=== PATIENT | female | born 1930 | race Caucasian/White ===

== ENCOUNTER 2017-08-22 10:55 | Emergency (ER) | payer MEDICARE, OTHER ==
[~2017-08-22] VITALS: Ht 157.5 cm; Wt 65.8 kg
[~2017-08-22 10:55] MED LIST: ACET325 PO; ALBU90OI INH; AZIT250 PO; BISA10S PR; CALCITRATE200 MG PO; CHOL10002 PO; DOCU100 PO; DULOXETINE HCL20 MG PO; FISH1000 PO; HYDACE5325 PO; HYDR1TAB94 PO; IBUP400 PO; IRON240 MG PO; LACT10SY PO; LAVAP17G PO; MULTI VITAMIN1 EACH PO; Norco 5-325 Ta1 EACH PO; ONDA4 PO; OXYC10ER PO; OXYC15ER PO; OXYC5 PO; QUET25 PO; SENN187 PO; Vitamin C500 M3 PO
[2017-08-22] MEDS ORDERED: Multiple Vitam1 EAC1 (11:09)
[2017-08-22] MEDS ORDERED: Colace100 MG PO (11:09)
[2017-08-22] MEDS ORDERED: CALCITRATE200 MG PO (11:09)
[2017-08-22] MEDS ORDERED: ACET325 (11:10)
[2017-08-22] MEDS ORDERED: QUET25 PO (11:10)
== END 2017-08-22 15:02 | disposition home or self-care (01) ==
LOC: ER 10:55
DX: S51.011A Laceration without foreign body of right elbow, initial encounter (principal); S01.111A Laceration without foreign body of right eyelid and periocular area, initial encounter; S50.01XA Contusion of right elbow, initial encounter; S80.01XA Contusion of right knee, initial encounter; M25.511 Pain in right shoulder; Z79.899 Other long term (current) drug therapy; Z87.891 Personal history of nicotine dependence; W19.XXXA Unspecified fall, initial encounter
CPT/HCPCS: 12013; 70450; 72125; 73030; 73080; 99284

== ENCOUNTER 2019-03-22 12:14 | Inpatient (IN) | payer MEDICARE, OTHER ==
[~2019-03-22] VITALS: Ht 157.5 cm; Wt 56.7 kg
[~2019-03-22 12:14] MED LIST changes: +CENTRUM SILVER1 EAC2 PO; +Colace100 MG PO; +Multiple Vitam1 EAC1 PO
[2019-03-22] MEDS ORDERED: QUETIAPINE FUM100 MG PO (13:40)
[2019-03-22] MEDS ORDERED: ALPR.5 PO (14:56)
[2019-03-22 16:09] LABS: BASOPHILS ABSOLUTE AUTO 0.04 K/mm3 (0.00-0.23); BASOPHILS PERCENT AUTO 0 % (0-2); EOSINOPHILS PERCENT AUTO 4 % (0-6); Hematocrit 36.8 % (33.0-51.0); Hemoglobin 11.7 g/dL (11.5-16.0); IMMATURE GRAN ABSOLUTE AUTO 0.03 K/mm3 (0.00-0.10); IMMATURE GRAN PERCENT AUTO 0 % (0-1); LYMPHOCYTES ABSOLUTE AUTO 1.03 K/mm3 (0.84-5.20); LYMPHOCYTES PERCENT AUTO 11 % (21-46); MONOCYTES ABSOLUTE AUTO 0.68 K/mm3 (0.16-1.47); MONOCYTES PERCENT AUTO 8 % (4-13); Mean Corpuscular HGB 30.2 pg (26.0-34.0); Mean Corpuscular HGB Conc 31.8 g/dL (31.5-36.5); Mean Corpuscular Volume 95 fL (80-100); Mean Platelet Volume 10.2 fL (9.1-12.4); NEUTROPHILS ABSOLUTE AUTO 6.86 K/mm3 (1.96-9.15); NEUTROPHILS PERCENT AUTO 76 % (41-73); Platelet Count 235 K/mm3 (150-400); RDW Coefficient Variation 14.1 % (11.7-14.2); Red Blood Cell Count 3.87 M/mm3 (3.80-5.20); White Blood Cell Count 9.04 K/mm3 (4.00-11.30)
[2019-03-22 16:35] LABS: Albumin, Blood 3.9 g/dL (3.4-5.0); Albumin/Globulin Ratio 1.1 (0.8-1.8); Bilirubin, Total 1.2 mg/dL (0.1-1.0); Bun/Creatinine Ratio 26.2 (12.0-20.0); Calcium, Blood 9.6 mg/dL (8.5-10.1); Creatinine, Blood 0.99 mg/dL (0.40-1.00); Globulin, Blood 3.4 g/dL (2.2-4.0); Potassium, Blood 4.2 mmol/L (3.5-5.5); Total Protein, Blood 7.3 g/dL (6.4-8.2)
[2019-03-22] MEDS ORDERED: IBUP400 PO (16:54)
[2019-03-22] MEDS ORDERED: Anti-Diarrheal2 MG PO (16:55)
[2019-03-22] MEDS ORDERED: NYSTRIT TOP (16:56)
[2019-03-22] MEDS ORDERED: ABAT250V (16:56)
--- NOTE | 2019-03-22 18:10 | NUR ---
ADMISSION: REPORT RECIEVED FROM ED RN. PT TO UNIT AT ABOUT 1640. UPON ASSESSMENT PT IS DROWSY, AWAKENS TO VOICE AND PAIN. PT IS ORIENTED. HX OF DEMENTIA, BED ALARM ON FOR SAFETY. VSS. ATTENDS SOILED, PT TURNED AND CHANGED. PT WINCES WHEN TURNED, BUT DENIES NEED FOR PAIN MED. WILL POSTION FOR COMFORT AND CTM.
--- NOTE | 2019-03-22 18:37 | NUR ---
SUMMARY: NO CHANGE SINCE ADMISSION. PT CONTINUES TO BE DROWSY, AWAKENS EASILY
[2019-03-23 04:08] LABS: BASOPHILS ABSOLUTE AUTO 0.04 K/mm3 (0.00-0.23); BASOPHILS PERCENT AUTO 1 % (0-2); EOSINOPHILS ABSOLUTE AUTO 0.44 K/mm3 (0.00-0.68); EOSINOPHILS PERCENT AUTO 6 % (0-6); Hematocrit 32.9 % (33.0-51.0); Hemoglobin 10.4 g/dL (11.5-16.0); IMMATURE GRAN ABSOLUTE AUTO 0.02 K/mm3 (0.00-0.10); IMMATURE GRAN PERCENT AUTO 0 % (0-1); LYMPHOCYTES ABSOLUTE AUTO 0.79 K/mm3 (0.84-5.20); LYMPHOCYTES PERCENT AUTO 11 % (21-46); MONOCYTES ABSOLUTE AUTO 0.63 K/mm3 (0.16-1.47); MONOCYTES PERCENT AUTO 9 % (4-13); Mean Corpuscular HGB 30.1 pg (26.0-34.0); Mean Corpuscular HGB Conc 31.6 g/dL (31.5-36.5); Mean Corpuscular Volume 95 fL (80-100); Mean Platelet Volume 10.2 fL (9.1-12.4); NEUTROPHILS ABSOLUTE AUTO 5.33 K/mm3 (1.96-9.15); NEUTROPHILS PERCENT AUTO 73 % (41-73); Platelet Count 199 K/mm3 (150-400); RDW Coefficient Variation 14.2 % (11.7-14.2); RDW Standard Deviation 49.3 fL (35.1-46.3); Red Blood Cell Count 3.46 M/mm3 (3.80-5.20); White Blood Cell Count 7.25 K/mm3 (4.00-11.30)
[2019-03-23 04:23] LABS: International Normalized Ratio 0.98; Prothrombin Time Results 10.4 Sec (9.7-11.5)
[2019-03-23 04:32] LABS: Alanine Aminotransfer (ALT/SGP 18 U/L (12-78); Albumin, Blood 3.1 g/dL (3.4-5.0); Alk Phos 57 U/L (50-136); Anion Gap 6 mmol/L (6-16); Aspartate Aminotrans (AST/SGOT 17 U/L (12-37); Bilirubin, Total 1.1 mg/dL (0.1-1.0); Blood Urea Nitrogen 24 mg/dL (8-24); Bun/Creatinine Ratio 26.4 (12.0-20.0); CO2, Blood 26 mmol/L (21-32); Calcium, Blood 8.6 mg/dL (8.5-10.1); Chloride, Blood 110 mmol/L (98-108); Creatinine, Blood 0.91 mg/dL (0.40-1.00); Glomerular Filtration Rate >60 (60-); Glucose, Blood 86 mg/dL (70-99); Sodium, Blood 142 mmol/L (136-145); Total Protein, Blood 6.1 g/dL (6.4-8.2)
--- NOTE | 2019-03-23 07:23 | NUR ---
SHIFT SUMMARY LYING IN SEMI FOWLERS. REPOSITIONS SELF IN BED. ATTENDS IN PLACE FOR NCONTINENCE. REFUSES PAIN MEDS WHEN OFFERED SEVERAL TIMES. DENIES FURTHER NEEDS AT THIS TIME. SAFETY MEASURES IN PLACE. WILL GIVE HAND OFF TO ONCOMING SHIFT USING SBAR.
--- NOTE | 2019-03-23 11:28 | NUR ---
PATIENT PULLED IV. NEW 18 GA PLACED BY Krupa MOORE. FENTANYL 12.5 MG ADMIN OR C/O L HIP PAIN. CONT TO MONITOR.
--- NOTE | 2019-03-23 11:31 | NUR ---
PATIENT RESTING QUIETLY WITH EYES CLOSED. RESP E/U. CONT TO MONITOR.
--- NOTE | 2019-03-23 18:39 | NUR ---
SHIFT SUMMARY PATIENT HAS RESTED INTERMITANTLY T/O SHIFT. PULLED 2ND IV OUT AT APPROX 1800. REFUSED TO LET CN PLACE NEW IV; ATTEMPTED TO SCRATCH HER. WILL PASS ON TO LU CN. INCONTINENT OF URINE X 2, ATTENDS CHANGED. CIRC CHECKS TO MIGUELANGEL COOLEY. INFORMED BY DR MORALES THAT PATIENT WILL HAVE SURGERY TOMORROW.
--- NOTE | 2019-03-24 05:21 | NUR ---
SHIFT SUMMARY LYING IN SEMI FOWLERS. REPOSITIONS SELF IN BED. ATTENDS IN PLACE FOR INCONTINENCE. REFUSES PAIN MEDS ESCH TIME OFFERED. DENIES FURTHER NEEDS AT THIS TIME. SAFETY MEASURES IN PLACE. WILL GIVE HAND OFF TO ONCOMING SHIFT USING SBAR.
[2019-03-24 12:51] LABS: BASOPHILS ABSOLUTE AUTO 0.05 K/mm3 (0.00-0.23); BASOPHILS PERCENT AUTO 1 % (0-2); EOSINOPHILS ABSOLUTE AUTO 0.16 K/mm3 (0.00-0.68); EOSINOPHILS PERCENT AUTO 2 % (0-6); Hematocrit 32.3 % (33.0-51.0); Hemoglobin 10.1 g/dL (11.5-16.0); IMMATURE GRAN ABSOLUTE AUTO 0.03 K/mm3 (0.00-0.10); IMMATURE GRAN PERCENT AUTO 0 % (0-1); LYMPHOCYTES ABSOLUTE AUTO 0.88 K/mm3 (0.84-5.20); LYMPHOCYTES PERCENT AUTO 10 % (21-46); MONOCYTES ABSOLUTE AUTO 0.67 K/mm3 (0.16-1.47); MONOCYTES PERCENT AUTO 8 % (4-13); Mean Corpuscular HGB 30.1 pg (26.0-34.0); Mean Corpuscular HGB Conc 31.3 g/dL (31.5-36.5); Mean Corpuscular Volume 96 fL (80-100); Mean Platelet Volume 10.4 fL (9.1-12.4); NEUTROPHILS ABSOLUTE AUTO 6.71 K/mm3 (1.96-9.15); NEUTROPHILS PERCENT AUTO 79 % (41-73); Platelet Count 204 K/mm3 (150-400); RDW Coefficient Variation 13.9 % (11.7-14.2); RDW Standard Deviation 49.1 fL (35.1-46.3); Red Blood Cell Count 3.35 M/mm3 (3.80-5.20)
[2019-03-24 13:04] LABS: Anion Gap 10 mmol/L (6-16); Blood Urea Nitrogen 25 mg/dL (8-24); Bun/Creatinine Ratio 32.2 (12.0-20.0); CO2, Blood 21 mmol/L (21-32); Calcium, Blood 8.8 mg/dL (8.5-10.1); Chloride, Blood 111 mmol/L (98-108); Creatinine, Blood 0.78 mg/dL (0.40-1.00); Glomerular Filtration Rate >60 (60-); Glucose, Blood 72 mg/dL (70-99); Phosphorus, Blood 2.9 mg/dL (2.5-4.9); Potassium, Blood 4.3 mmol/L (3.5-5.5); Sodium, Blood 142 mmol/L (136-145)
--- NOTE | 2019-03-24 14:15 | NUR ---
PATIENT TO SURGERY AT THIS TIME.
--- NOTE | 2019-03-24 14:15 | NUR ---
INTO SDS VIA BED. PT SLEEPS MAINLY, WHEN NOT DISTURBED. OPENS EYES TO VOICE AND CURRENTLY ABLE TO FOLLOW COMMANDS.HOWEVER, PT DISORIENTED AND CONFUSED.PT APPEARS TO HAVE SOME CONTRACTURES. SHE IS CURRENTLY LAYING ON HER LEFT SIDE WITH BOTH HER ARMS AND HER LEGS DRAWN UP TOWARDS HER CORE. HISTORY AND ALLERGIES REVIEWED. NPO STATUS CONFIRMED FROM PT PRIMARY RN. LUNGS DIMINISHED IN THE BASES. SATS>90% ON RA. ORAL MUCOSA APPEARS VERY DRY. VS WDL. MESSAGE LEFT FOR PT SON SMOOTH REGARDING NEED FOR ANESTHESIA CONSENT. NO PREP, TEDS, OR PAS PT HAS BEEN INTERMITTENTLY AGGITATED AND COMBATIVE-SHE DID STRIKE AT STAFF EARLIER TODAY. PT DOES NOT APPEAR TO BE IN ANY APPARENT DISTRESS AT THIS TIME.
--- NOTE | 2019-03-24 17:50 | NUR ---
PATIENT RETURNED TO ROOM FROM PACU AT THIS TIME. AGITATED, UNABLE TO OBTAIN BP READING D/T PATIENT MOVING. BIOX SENSOR ON TOE, 94 % ON RA. L HIP WITH AQUACEL DRESSING, D&I. CIRC CHECKS WNL. HRR. LS CLEAR, DECREASED IN BASES. PATIENT TOOK FEW SIPS OF WATER. STATES 'NO' SHE IS NOT HURTING, 'I'M JUST TIRED.' PATIENT SPEAKING TO SELF OF 2 PERSONS, ARGUING, ETC. WILL CONT TO MONITOR.
--- NOTE | 2019-03-24 18:55 | NUR ---
PATIENT REMOVED IV DESPITE ARM WRAPPED WELL. CONT TO ARGUE WITH SELF. ABLE TO OBTAIN BP, UNSURE OF ACCURACY D/T PATIENT MOVEMENT. INCONTINENT OF URINE, REQUIRED BED CHANGE. REPORT TO LU VERDUGO.
--- NOTE | 2019-03-24 19:33 | NUR ---
SPOKE WITH DR FAIRCHILD RE: NO IV ACCESS. DECLINES TO D/C IVF ORDER AT THIS TIME. INSTRUCTED OK TO LEAVE OUT IV AT THIS TIME AND DISCUSS WITH DAY SHIFT HOSPITALIST IN AM. PATIENT CONT TO TAKE PO FLUIDS WELL. RESTING QUIETLY AT THIS TIME. UNABLE TO OBTAIN UA BEFORE PATIENT WENT TO OR TODAY D/T PATIENT REFUSAL/PAIN. REQUESTED OR TO OBTAIN, NOT DONE. NOC RN GIVEN UPDATE.
[2019-03-25 04:21] LABS: BASOPHILS ABSOLUTE AUTO 0.02 K/mm3 (0.00-0.23); BASOPHILS PERCENT AUTO 0 % (0-2); EOSINOPHILS ABSOLUTE AUTO 0.15 K/mm3 (0.00-0.68); EOSINOPHILS PERCENT AUTO 2 % (0-6); Hematocrit 31.9 % (33.0-51.0); Hemoglobin 9.9 g/dL (11.5-16.0); IMMATURE GRAN ABSOLUTE AUTO 0.03 K/mm3 (0.00-0.10); IMMATURE GRAN PERCENT AUTO 0 % (0-1); LYMPHOCYTES ABSOLUTE AUTO 1.01 K/mm3 (0.84-5.20); LYMPHOCYTES PERCENT AUTO 12 % (21-46); MONOCYTES ABSOLUTE AUTO 1.05 K/mm3 (0.16-1.47); MONOCYTES PERCENT AUTO 12 % (4-13); Mean Corpuscular HGB 30.4 pg (26.0-34.0); Mean Corpuscular Volume 98 fL (80-100); Mean Platelet Volume 10.5 fL (9.1-12.4); NEUTROPHILS ABSOLUTE AUTO 6.53 K/mm3 (1.96-9.15); NEUTROPHILS PERCENT AUTO 74 % (41-73); Platelet Count 215 K/mm3 (150-400); RDW Coefficient Variation 13.7 % (11.7-14.2); RDW Standard Deviation 49.2 fL (35.1-46.3); Red Blood Cell Count 3.26 M/mm3 (3.80-5.20); White Blood Cell Count 8.79 K/mm3 (4.00-11.30)
[2019-03-25 04:39] LABS: Albumin, Blood 2.8 g/dL (3.4-5.0); Anion Gap 8 mmol/L (6-16); Blood Urea Nitrogen 22 mg/dL (8-24); Bun/Creatinine Ratio 27.4 (12.0-20.0); CO2, Blood 23 mmol/L (21-32); Calcium, Blood 8.7 mg/dL (8.5-10.1); Chloride, Blood 110 mmol/L (98-108); Glomerular Filtration Rate >60 (60-); Glucose, Blood 94 mg/dL (70-99); Potassium, Blood 4.2 mmol/L (3.5-5.5); Sodium, Blood 141 mmol/L (136-145)
--- NOTE | 2019-03-25 06:18 | NUR ---
SHIFT SUMMARY LYING IN LOW FOWLERS WHILE LYING ON HER RIGHT SIDE WITH EYES CLOSED. MEDICATED FOR PAIN X2. DRESSING TO LEFT HIP REPLACED AFTER PT REMOVED IT. SKIN CLEANSED WITH DERMAL WOUND SPRAY BEFORE. DENIES PAIN, DISCOMFORT, OR FURTHER NEEDS AT THIS TIME. SAFETY MEASURES IN PLACE. WILL GIVE HAND OFF TO ONCOMING SHIFT USING SBAR.
--- NOTE | 2019-03-25 10:58 | NUR ---
DR ANTONIO RECENTLY HERE. REPORTED PT OK TO HAVE NO IV SHE WAS REPORTED TO PULL IT OUT. PT CONT TO BE CONFUSED. ALARM IN PLACE. THERAPY HERE TO WORK WITH PT. PT MED WITHOUT DIFFICULTY.
--- NOTE | 2019-03-25 11:34 | NUR ---
DR ANTONIO REPORTED TO VERIFY ORTHO DR MILLAN WITH PT RECEIVING LOVENOX. DR ALEJANDRO NOTIFIED REPORTS OK FOR PT TO HAVE LOVENOX.
--- NOTE | 2019-03-25 16:35 | NUR ---
Initial Visit: Palliative Care Consult for AD/POLST and Advanced Care Planning. Pt is sitting in recliner chair upon arrival. She is A&O to self only and C/O pain in her left hip. She appears anxious as evidenced by hands and body fidgeting. Pt has hands under blanket and exposes them with dressing in her hands. Pt has pulled off her dressing. Reported Pt's pain and her taking off dressing to bedside nurse Burton. Also discussed case. Called and spoke with Pt's son Dennis. Engaged in therapeutic discussion regarding AD/POLST and Advanced Care Planning. Dennis reports Pt does not have AD/POLST completed. Educated on the importance of completing one with no response made by Dennis. Dennis appears non receptive to conversation and appears preocupied. Discussed curent coded status. Educated on life sustaining measures including risk factors and Dennis reports he would want Pt to receive CPR and Intubation if needed. No other concerns reported at this time. Palliative Care will remain available.
--- NOTE | 2019-03-25 18:17 | NUR ---
SHIFT SUMMARY PT CONT TO BE CONFUSED. ALARM IN PLACE. PT BEEN RESTING MOST OF DAY. PT WAS UP TO CHAIR TODAY WITH TAB ALARM IN PLACE. PT NOW IN BED WITH BED ALARM IN PLACE. PT BEEN ASSISTED WITH ADL'S PRN BY RN AND DRAPERY CUTTER MACHINE MULT TIMES TODAY. PO INTAKE BEEN ENCOURAGED MULT TIMES. PT HAS ATTENDS IN PLACE.
--- NOTE | 2019-03-26 00:46 | NUR ---
CONCERN THAT PATIENT HAS NOT URINATED THIS SHIFT. BLADDER SCAN REVEILED <5ML URINE. WE WILL CONTINUE TO ENCOURAGE PO FLUIDS. PATIENT IS REFUSING MOST CARE AND IS VERY SELECTIVE WITH FOLLOWING SUGGESTIONS.
--- NOTE | 2019-03-26 05:10 | NUR ---
PATIENT HAS BEEN AWAKE ALL NIGHT, TALKING TO PEOPLE WHO ARE NOT IN THE ROOM. SHE HAS REFUSED MOST CARE, MEDICATIONS, IV, DRINKING WATER, AND FOOD. CALL LIGHT IS WITHIN REACH, HOWEVER i AM NOT SURE SHE UNDERSTANDS IT'S PURPOSE. WE WILL CONTINUE TO ATTEMT TO GET MORE FLUIDS IN HER , SHE HAS STILL NOT URINATED ON THIS SHIFT.
--- NOTE | 2019-03-26 09:53 | NUR ---
DR COLEMAN HERE RECENTLY WELL DR ALEJANDRO. DR ALEJANDRO CLEANSED WOUND AND PLACED NEW DRESSING TO L HIP.
--- NOTE | 2019-03-26 16:47 | NUR ---
SHIFT SUMMARY PT CONT TO BE CONFUSED AND TALK TO SELF AND ANSWER SELF T/O DAY. PT HAS BEEN REFUSING TO EAT MEALS. PT DID DRINK ENSURE EARLIER TODAY, BUT HAS ALSO BEEN REFUSING TO DRINK WELL. PO INTAKE HAS BEEN ENCOURAGED MULT TIMES TODAY. PT BEEN REPOSITIONING SELF IN BED, WELL BEEN REPOSITIONED WHEN GIVEN BED BATH EARLIER TODAY WITH MULT ASSIST INCLUDING FEMALE RN AND DIGITAL CARTOGRAPHER. DISCUSSED PT'S STATUS WITH HARIS.
--- NOTE | 2019-03-27 04:18 | NUR ---
PATIENT HAS BEEN AWAKE HAVING CONVERSATIONS WITH SELF ALL NIGHT. EARLY ON IN THE SHIFT SHE HAD ONE LARGE VOID AND NONE SINCE. sHE CONTINUES TO REFUSE ALL CARE, MEDICATIONS, FLUID AND FOOD. sHE ALSO CONTINUES TO HAVE COMBATIVE BEHAVIORS WHEN CARE IS REQUIRED. tHE WAS A PERIOD OF APPROXIMATELY 50+ MINUTES WHERE SHE WAS ABSOLUTELY QUIET. CONTINUE TO ENSURE THAT PATIENT IS SAFE POSSIBLE WITH FREQUENT ROUNDING.
--- NOTE | 2019-03-27 12:00 | NUR ---
PT BEEN RESTING QUIETLY. PT REPOSITIONED. PT BEEN MOVING SELF IN BED PRIOR TO SLEEPING. HEEL PROTECTOR DRESSINGS BEEN PLACED WELL PROTECTIVE DRESSING TO BOTTOM. BED ALARM IN PLACE. PT INCISION SITE CLEANED AND NEW AQUACEL DRESSING APPLIED.
--- NOTE | 2019-03-27 17:04 | NUR ---
SHIFT SUMMARY: PT WAS ALERT THIS AM AND A PART OF BREAKFEAST AND DRANK SOME FLUIDS. PT THEN FELL ASLEEP AND HAS BEEN RESTING SOUNDLY SINCE THEN. PT DOES AWAKE WHEN DISTURBED BUT THEN FALLS BACK TO SLEEP. PT HAS BEEN REPOSITIONED WITH MULT PILLOWS INCLUDING FLOATING HEELS Q2/PRN. NEW DRESSING WAS APPLIED TO HIP EARLIER TODAY AFTER CLEANING SITE. MEPILEX DRESSING WAS PLACED TO BOTTOM WELL HEEL PROTECTIVE DRESSINGS. ALARM IN PLACE FOR SAFETY. INSURANCE SALESPERSON ASSISTING WITH PT.
--- NOTE | 2019-03-28 05:24 | NUR ---
SUMMARY: POD [address] ALEJANDRO. VSS, AFEBRILE, ROOM AIR. MINIMAL PO INTAKE THIS SHIFT. PT ROUSES TO VOICE AND TAKES MEDS WHOLE WITH APPLE JUICE THEN SLEEPS SOUNDLY MOST OF SHIFT. REPOSITION Q2 HOURS AND CHANGE ATTENDS FOR INCONTINENT CARE. MINIMALLY PAINFUL WITH REPOSIITIONING. PROTECTIVE MEPILEX ON COCCYX AND HEELS. ANTICIPATE PT/OT, UP TO CHAIR AND ENCOURGE PO INTAKE.
--- NOTE | 2019-03-28 16:58 | NUR ---
SHIFT SUMMARY PT WORKED WITH THERAPY THIS AM BUT HAS BEEN SLEEPY SINCE THEN. AWAKENS TO NAME BUT QUICKLY FALLS ASLEEP AFTER. ONLY TAKES SMALL SIPS OF COFFEE AND BITES OF CHOCOLATE JELLO. CONCERNED PT IS NOT GETTING ADEQUATE NUTRITION.
--- NOTE | 2019-03-28 17:51 | NUR ---
Spiritual Care intial note: Mrs. Gallegos was alone in room and was sleepy. She allowed me to pray at bedside, but she was not open to further conversation. I will remain available.
--- NOTE | 2019-03-29 03:07 | NUR ---
Patient confused to person, place, time. Speaking to self. Ambulated to bed with FWW and 2 assist. Incontinent of urine. COmplaints of pain, given tylenol as ordered. Patient resting comfortably. Tolerating PO. Patient removing aquacell dressings, replacing as needed.
--- NOTE | 2019-03-29 09:33 | NUR ---
DR HOLGUIN IN TO SEE PT DR. HOLGUIN IN TO SEE PT AT THIS TIME, PLAN DISCHARGE TOMORROW. PT ABLE TO EAT SEVERAL BITES OF EGGS AND SIPS OF MILK WITH FEEDING ASSISTANCE AND LOTS OF ENCOURAGEMENT. COMPLIANT WITH PO MEDS W/PUDDING. CURRENTLY TALKING TO SELF.
--- NOTE | 2019-03-29 17:16 | NUR ---
SHIFT SUMMARY PT CONTINUES TO STRUGGLE WITH POOR PO INTAKE. WILLING TO TAKE SIPS OF MILK AND A FEW SMALL BITES AT BREAKFAST ONLY; REQUIRES FEEDING ASSISTANCE AND CONSTANT ENCOURAGEMENT. REFUSED LUNCH AND PUSHED FOOD AWAY. DECLINED DINNER AND ENSURE. HEARD TALKING/MUMBLING TO SELF T/O SHIFT, INTERMITTANLY COMPLIANT WITH CARE NEEDS. PT ABLE TO AMBULATE WITH 1 ASSIST/FWW AND STAND BY FOR SAFETY. VOIDED ONCE DURING SHIFT. C/O OF PAIN THIS MORNING ONLY; MEDICATED WITH 2 PO TYLENOL TABS. UP IN CHAIR ONCE BUT QUICKLY REQUESTED TO RETURN TO BED. DRESSING ON LEFT HIP C/D/I WITH NO DRAINAGE NOTED. MEPILEX ON HEALS AND COCCYX C/D/I W/O DRAINAGE.
--- NOTE | 2019-03-30 03:48 | NUR ---
Patient confused, having auditory hallucinations. Turns and repositions self. Tolerating PO; encouraging patient to drink fluids. Patient refused 21:00 medications. No complaints of pain.
--- NOTE | 2019-03-30 07:56 | NUR ---
PT PLEASANT AND COOP. DRESSING TO L HIP C/D/I. TAB ALARM IN PLACE. PT DRINKING CHOCOLATE ENSURE. LS CLEAR. PO INTAKE ENCOURAGED.
--- NOTE | 2019-03-30 12:12 | NUR ---
REPORT BEEN GIVEN TO CRISTINE ROBERT. PT OUT BY TRANSPORT. PT HAS NO IV'S. VISITOR USE ASSISTANT BEEN ASSISTING WITH DISCHARGE, REPORTS WILL CONTACT FAMILY.
--- NOTE | 2019-03-30 12:14 | NUR ---
[facility] SENT WITH TRANSPORT. [facility] AT [facility] REPORTS WILL FAX MEDICATIONS NEEDED TO PHARMACY THAT THEY USE.
--- NOTE | 2019-03-30 12:14 | NUR ---
MEPILEX BEEN IN PLACE TO PT'S BOTTOM. PT REFUSED NEW ATTENDS.
== END 2019-03-30 12:16 | DRG 481 ==
LOC: ER 12:14 → SURS 16:09
PROVIDERS: Emergency Medicine; Nurse Practitioner Acute Care; Orthopaedic Surgery; ADMIT Family Medicine
PROC: 0QH Lower Bones, Insertion (ICD-10-PCS; 2019-03-24)
PROC: 0QS734Z Reposition Left Upper Femur with Internal Fixation Device, Percutaneous Approach (ICD-10-PCS; principal; 2019-03-24 14:30)
DX: S72.002A Fracture of unspecified part of neck of left femur, initial encounter for closed fracture (principal); D62 Acute posthemorrhagic anemia; F02.81 Dementia in other diseases classified elsewhere, unspecified severity, with behavioral disturbance; G30.9 Alzheimer's disease, unspecified; W19.XXXA Unspecified fall, initial encounter; F41.9 Anxiety disorder, unspecified
CPT/HCPCS: 36415; 71045; 73502; 73560-LT; 80053; 80069; 82550; 85025; 85610; 87040; 93005; 93010; 96360; 97161; 97166; 97530; 99285-25; A9270; C1713; C1769; J0690; J1650; J2250; J2704; J3010; J7030; J7120

== ENCOUNTER → 2019-09-26 | Outpatient (CLI) | payer MEDICARE, OTHER ==
[~2019-09-26] MED LIST changes: +ABAT250V; +ALPR.5 PO; +Anti-Diarrheal2 MG PO; +NYSTRIT TOP; +QUETIAPINE FUM100 MG PO; +TRAM50 PO
[2019-09-26 16:09] LABS: BASOPHILS ABSOLUTE AUTO 0.03 K/mm3 (0.00-0.23); BASOPHILS PERCENT AUTO 1 % (0-2); EOSINOPHILS ABSOLUTE AUTO 0.13 K/mm3 (0.00-0.68); EOSINOPHILS PERCENT AUTO 3 % (0-6); Hematocrit 32.1 % (33.0-51.0); IMMATURE GRAN ABSOLUTE AUTO 0.01 K/mm3 (0.00-0.10); IMMATURE GRAN PERCENT AUTO 0 % (0-1); LYMPHOCYTES ABSOLUTE AUTO 0.94 K/mm3 (0.84-5.20); LYMPHOCYTES PERCENT AUTO 24 % (21-46); MONOCYTES ABSOLUTE AUTO 0.46 K/mm3 (0.16-1.47); MONOCYTES PERCENT AUTO 12 % (4-13); Mean Corpuscular HGB 30.9 pg (26.0-34.0); Mean Corpuscular HGB Conc 31.2 g/dL (31.5-36.5); Mean Corpuscular Volume 99 fL (80-100); Mean Platelet Volume 10.4 fL (9.1-12.4); NEUTROPHILS PERCENT AUTO 60 % (41-73); Platelet Count 238 K/mm3 (150-400); RDW Coefficient Variation 14.3 % (11.7-14.2); RDW Standard Deviation 52.3 fL (35.1-46.3); Red Blood Cell Count 3.24 M/mm3 (3.80-5.20); White Blood Cell Count 3.97 K/mm3 (4.00-11.30)
[2019-09-26 16:30] LABS: Percent Saturation 43.1 % (15.0-50.0)
== END | disposition home or self-care (01) ==
LOC: LAB SHORT 14:40 → LAB 14:40
PROVIDERS: Internal Medicine Hematology & Oncology
DX: D50.8 Other iron deficiency anemias (principal)
CPT/HCPCS: 82728; 83540; 83550; 85025

== ENCOUNTER 2020-05-07 16:42 | Emergency (ER) | payer MEDICARE, OTHER ==
[~2020-05-07] VITALS: Ht 160 cm; Wt 54.4 kg
[~2020-05-07 16:42] MED LIST changes: -ALPR.5 PO; -Anti-Diarrheal2 MG PO; -Colace100 MG PO; -QUETIAPINE FUM100 MG PO; -TRAM50 PO
[2020-05-07 17:26] LABS: BASOPHILS ABSOLUTE AUTO 0.03 K/mm3 (0.00-0.23); BASOPHILS PERCENT AUTO 0 % (0-2); EOSINOPHILS ABSOLUTE AUTO 0.02 K/mm3 (0.00-0.68); EOSINOPHILS PERCENT AUTO 0 % (0-6); Hematocrit 41.1 % (33.0-51.0); Hemoglobin 12.4 g/dL (11.5-16.0); IMMATURE GRAN ABSOLUTE AUTO 0.03 K/mm3 (0.00-0.10); IMMATURE GRAN PERCENT AUTO 0 % (0-1); LYMPHOCYTES ABSOLUTE AUTO 1.24 K/mm3 (0.84-5.20); LYMPHOCYTES PERCENT AUTO 14 % (21-46); MONOCYTES ABSOLUTE AUTO 0.64 K/mm3 (0.16-1.47); MONOCYTES PERCENT AUTO 7 % (4-13); Mean Corpuscular HGB 30.5 pg (26.0-34.0); Mean Corpuscular HGB Conc 30.2 g/dL (31.5-36.5); Mean Corpuscular Volume 101 fL (80-100); Mean Platelet Volume 10.6 fL (9.1-12.4); NEUTROPHILS ABSOLUTE AUTO 7.01 K/mm3 (1.96-9.15); NEUTROPHILS PERCENT AUTO 78 % (41-73); Platelet Count 275 K/mm3 (150-400); RDW Coefficient Variation 12.6 % (11.7-14.2); RDW Standard Deviation 47.5 fL (35.1-46.3); Red Blood Cell Count 4.06 M/mm3 (3.80-5.20); White Blood Cell Count 8.97 K/mm3 (4.00-11.30)
[2020-05-07 17:45] LABS: Bicarbonate Venous 21.6 mmol/L (24.0-30.0); PCO2 Venous 43.8 mmHg (38-42); PO2 Venous 32.9 mmHg (38-42); pH Blood Venous 7.34 (7.34-7.37)
[2020-05-07 17:46] LABS: Base Excess Venous -2.5 mmol/L
[2020-05-07 18:16] LABS: Alanine Aminotransfer (ALT/SGP 20 U/L (12-78); Albumin, Blood 3.4 g/dL (3.4-5.0); Albumin/Globulin Ratio 0.9 (0.8-1.8); Alk Phos 75 U/L (50-136); Anion Gap 10 mmol/L (6-16); Aspartate Aminotrans (AST/SGOT 30 U/L (12-37); Bilirubin, Total 0.9 mg/dL (0.1-1.0); Blood Urea Nitrogen 42 mg/dL (8-24); Bun/Creatinine Ratio 47.1 (12.0-20.0); CO2, Blood 24 mmol/L (21-32); Calcium, Blood 9.9 mg/dL (8.5-10.1); Chloride, Blood 117 mmol/L (98-108); Creatinine, Blood 0.89 mg/dL (0.40-1.00); Globulin, Blood 3.8 g/dL (2.2-4.0); Glomerular Filtration Rate >60 (60-); Glucose, Blood 92 mg/dL (70-99); Potassium, Blood 4.6 mmol/L (3.5-5.5); Sodium, Blood 151 mmol/L (136-145); Total Protein, Blood 7.2 g/dL (6.4-8.2)
[2020-05-07] MEDS ORDERED: Colace100 MG PO (18:35)
[2020-05-07] MEDS ORDERED: QUETIAPINE FUM100 MG PO (18:36)
[2020-05-07] MEDS ORDERED: ACET325 PO ×2 (18:36→18:39)
[2020-05-07] MEDS ORDERED: MIRALAX17 GM PO (18:38)
[2020-05-07] MEDS ORDERED: IBUP400 PO (18:39)
[2020-05-07] MEDS ORDERED: LOPE2C PO (18:40)
[2020-05-07] MEDS ORDERED: QUETIAPINE FUMA50 M2 PO (18:41)
[2020-05-07] MEDS ORDERED: TRAM50 PO (18:42)
[2020-05-07] MEDS ORDERED: SENN187 PO (18:42)
[2020-05-07] MEDS ORDERED: ALPR.25 PO (18:45)
[2020-05-07] MEDS ORDERED: Zithromax250 MG PO (19:54)
== END 2020-05-07 23:23 | disposition home or self-care (01) ==
LOC: ER 16:42
PROVIDERS: Physician Assistant
DX: U07.1 COVID-19 (principal); E87.0 Hyperosmolality and hypernatremia; R09.02 Hypoxemia; F03.90 Unspecified dementia, unspecified severity, without behavioral disturbance, psychotic disturbance, mood disturbance, and anxiety; F41.9 Anxiety disorder, unspecified; Z87.891 Personal history of nicotine dependence; Z79.899 Other long term (current) drug therapy
CPT/HCPCS: 36415; 71045; 80053; 82803; 84484; 85025; 93005; 93010; 96361; 96365; 96367; 99285-25; J0456; J0696; J7030; J7050